=== PATIENT | female | born 2000 | race African-American/Black ===

== ENCOUNTER 2023-07-26 11:45 | Emergency (ER) | payer OTHER, SELFPAY ==
[2023-07-26 11:58] VITALS: BP 136/73; PULSE 70; RESP 20; TEMP 36.6; O2SAT 100
--- NOTE | 2023-07-26 12:34 | ED.GENADULT ---
HPI - General Adult General Chief complaint: Urogenital-Female Stated complaint: Urinary Problems Source: patient Mode of arrival: ambulatory Limitations: no limitations History of Present Illness HPI narrative: Patient presents for evaluation of vaginal irritation for the last 5 days. She reports swelling in the area as well. She denies any significant vaginal discharge. Today is the last day of her most recent period. She states her boyfriend told her the day after her onset of symptoms he had a sexual encounter outside of their relationship. He had received STI test results earlier that day which were negative. He went in for testing six days prior to her onset of symptoms. They do not use condoms during their sexual encounters. She is not on contraception. She denies any urinary symptoms, abdominal/pelvic/low back pain. She states she had an last month. Related Data Allergies Allergy/AdvReac Type Severity Reaction Status Date / Time No Known Allergies Allergy Verified 07/26/23 12:01 Review of Systems Review of Systems: CONSTITUTIONAL: Denies fever, chills, or sweats. EYES: Denies visual changes, redness, or discharge. ENT: Denies rhinorrhea, congestion, sore throat, or otalgia. CARDIOVASCULAR: Denies chest pain, palpitations, or edema. RESPIRATORY: Denies cough or dyspnea. GASTROINTESTINAL: Denies abdominal pain, nausea, vomiting, or diarrhea. GENITOURINARY: Reports vaginal irritation and swelling. Denies any vaginal discharge. Denies any urinary symptoms SKIN: Denies rash or itching. MUSCULOSKELETAL: Denies back pain, joint pain, or myalgia. NEUROLOGIC: Denies headache, numbness, dizziness, or weakness. PSYCHIATRIC: Denies anxiety or depression. [facility] Family History Family History (Updated 07/26/23 @ 12:47 by Que Altamirano, [facility], ) Mother Family history non-contributory Social History Social History Substance use: never Gender identity (if verbalized by the patient): Female Sexual Orientation (if Verbalized by the Patient): Straight or Heterosexual Spiritual care concerns: No Exam Narrative: GENERAL: Well-appearing, well-nourished, and in no acute distress. HEAD: Normocephalic, atraumatic. EYES: PERRLA and EOMI. ENT: Nares clear, no rhinorrhea or epistaxis. Mucous membranes moist. Oropharynx without tonsillar hypertrophy exudate or other lesions. Bilateral TMs pearly kaiser nonbulging NECK: Supple. No adenopathy or masses. No carotid bruits or JVD CHEST: Clear to auscultation. No respiratory distress. No wheezes rales or rhonchi HEART: Regular rate and rhythm. No murmur heard. Normal peripheral pulses. ABDOMEN: Soft, nontender, nondistended, normal active bowel sounds. EXTREMITIES: Normal range of motion. No edema. GENITAL: No external genital lesions. No adnexal tenderness. No cervical motion tenderness. There is a small amount of thick brown drainage in vaginal vault. Cervix is friable. SKIN: Warm, dry, no rash. NEURO: No focal deficits. Alert and oriented x3. PSYCH: Normal mood and affect. Course Course Emergency Course: This is a 22-year-old female who presented for evaluation after potential STD exposure. Both she and partner will be treated for gonorrhea, chlamydia, and trich. I placed her on seven days of flagyl as this would treat both trich and BV. She will received a script for fluconazole that she can take after completion of abx if she develops vaginal candidiasis. She was advised to remain abstinent until seven days after both she and partner complete abx therapy. She should follow up with primary care provider and have comprehensive STI examination performed. She should go to the emergency department for abdominal pain or worsening symptoms. Patient in agreement with plan of care. Level of Care: Express Care Visit Vital Signs Vital signs: Vital Signs Temperature 36.6 C 07/26/23 11:
[2023-07-26] MEDS: cefTRIAXone 500 MG VIAL IM (13:33)
[2023-07-26 15:32] LABS: Trichomonas Vag PCR NOT DETECTED (NOT DETECTE)
[2023-07-26 15:54] LABS: Chlamydia trachomatis NOT DETECTED (NOT DETECTE); Neisseria gonorrhoeae PCR NOT DETECTED (NOT DETECTE)
[2023-07-26 15:57] LABS: Chlamydia trachomatis NOT DETECTED (NOT DETECTE); Neisseria gonorrhoeae PCR NOT DETECTED (NOT DETECTE)
== END 2023-07-26 13:55 | disposition home or self-care (01) ==
PROVIDERS: Emergency Provider Nurse Practitioner; PCP Obstetrics & Gynecology
DX: B37.31 Acute candidiasis of vulva and vagina (principal); Z11.3 Encounter for screening for infections with a predominantly sexual mode of transmission
CPT/HCPCS: 81003; 81025; 87070; 87086; 87491; 87591; 87661; 96372; 99214; G0463; J0696